=== PATIENT | female | born 1990 | race African-American/Black ===

== ENCOUNTER 2018-03-01 22:37 | Emergency (ER) | payer OTHER ==
[~2018-03-01] VITALS: Ht 180.3 cm; Wt 75.0 kg
[2018-03-01 23:12] VITALS: BP 117/67; PULSE 66; RESP 14; TEMP 98.5; O2SAT 100
[2018-03-02] MEDS ORDERED: CIPR-9 PO (01:40)
[2018-03-02] MEDS ORDERED: TETANUS/DIPHTHERIA TOXOID ADULT 0.5 ML VIAL IM ONE (01:45)
[2018-03-02] MEDS ORDERED: CIPROFLOXACIN 500 MG TAB PO ONE (01:45)
--- NOTE | 2018-03-02 01:53 | PD ---
HPI Chief Complaint: Injury Time Seen by Provider: 01:34 Travel History International Travel<30 days: No Contact w/Intl Traveler<30days: No Traveled to known affect area: No History of Present Illness HPI 27-year-old black female presents emergency department for evaluation of a plantar puncture wound to her right foot which occurred at work this evening. She states that she stepped on a piece of wood from a palate that contain the nail. She states the nail was sticking through the wood approximately 1 inch. She states that it penetrated through the bottom sole of her sneaker into her foot. She states that it did not feel like it hit the bone. She has not had a tetanus shot over 5 years. Pain is mild. She denies any numbness, tingling or weakness. Symptoms are mild. She is referred for this work comp injury. [facility] Past Medical History Medical History: Denies Significant Hx Tetanus Vaccination: > 5 Years Influenza Vaccination: No ?: Not LMP: CURRENTLY Past Surgical History Surgical History: No Previous Surgery Social History Alcohol Use: No Tobacco Use: No Substance Use: No Allergies-Medications (Allergen,Severity, Reaction): Coded Allergies: No Known Allergies (Verified Allergy, Unknown, 03/01/18) Reported Meds & Prescriptions Reported Meds & Active Scripts Active Cipro (Ciprofloxacin HCl) 500 Mg Tab 500 Mg PO BID 7 Days Review of Systems General / Constitutional: No: Fever Eyes: No: Visual changes HENT: No: Headaches Cardiovascular: No: Chest Pain or Discomfort Respiratory: No: Shortness of Breath Gastrointestinal: No: Abdominal Pain Genitourinary: No: Dysuria Musculoskeletal: Positive: Pain, No: Arthralgias, Limited ROM, Weakness, Edema Skin: No Rash Neurologic: No: Weakness Psychiatric: No: Depression Endocrine: No: Polydipsia Hematologic/Lymphatic: No: Easy Bruising Physical Exam Narrative GENERAL: This is a well-nourished, well-developed patient, in no apparent distress. SKIN: No rashes, ecchymoses or lesions. Warm and dry. HEAD: Atraumatic. Normocephalic. EYES: PERRL, EOMI, no discharge or injection. No scleral icterus. EARS: Clear NOSE: Nasal turbinates appear normal. THROAT: Mucosa pink and moist. Airway patent. NECK: Trachea midline. supple, moves head freely. LUNGS: Clear to auscultation. CV: Regular in rhythm. ABDOMEN: Soft nontender. EXT: No clubbing cyanosis or edema. Examination of the right foot reveals a small plantar puncture wound over the the distal forefoot just before the metatarsal heads. This is between the fourth and fifth metatarsals. There is a small amount of blood in the tissue. Minimal tenderness. It does not appear to have any bony involvement. Neurovascular intact. I see a small area of darkness in the skin I suspect this is a area of blood and not a foreign body. Data Data Last Documented VS Vital Signs Date Time Temp Pulse Resp B/P (MAP) Pulse Ox O2 Delivery O2 Flow Rate FiO2 03/01/18 23:12 98.5 66 14 117/67 (84) 100 Orders Orders Foot, Limited (2vws) (03/02/18 01:38) Tetanus/Diphtheria Tox Adult (Tetanus/Di (03/02/18 01:45) Ciprofloxacin (Cipro) (03/02/18 01:45) MDM Medical Decision Making Medical Screen Exam Complete: Yes Emergency Medical Condition: Yes Medical Record Reviewed: Yes Interpretation(s) Right foot: Negative for acute fracture. No foreign body. No air in the tissue. Differential Diagnosis MDM: High Differential diagnoses: Fracture, sprain, strain, dislocation, contusion, neurovascular injury, plantar puncture wound Narrative Course Patient has sustained a plantar puncture wound. She is given tetanus immunization as well as Cipro 500 mg p.o. I have discussed with her the low likelihood of infection but unfortunately when the plantar puncture wounds do become infected they can be very difficult to treat at times. She is aware that she needs close follow-up in the next few days. I will give her tomorrow off allow her to elevate her foot. She can take ibuprofen at home for pain. This is right plantar puncture wound Diagnosis Primary Impression: Right plantar puncture wound Patient Instructions: General Instructions Additional Instructions: Rest. Elevation. Daily wound care with soap, water, Neosporin. Cipro. 3 Advil every 6 hours as needed for pain. No work 1 day. Follow-up with a work comp doctor in the next 2-3 days for recheck. Return to the ER if any problems. Med/Other Pt SpecificInfo: Prescription(s) given, Wound Care Scripts Ciprofloxacin (Cipro) 500 Mg Tab 500 MG PO BID for Infection for 7 Days, #14 TAB 0 Refills Prov: Darryl Holland MD 03/02/18 Disposition: 01 DISCHARGE HOME Condition: Stable Charly Charles Mar 02, 2018 01:53
--- NOTE | 2018-03-02 02:15 | RADRPT ---
EXAM DATE: 03/02/2018 1:52 AM EDT AGE/SEX: 27 years / Female INDICATIONS: Pain and swelling after stepping on a nail. Patient is being evaluated for possible for eign body. CLINICAL DATA: This is the patient's initial encounter. Patient reports that signs and symptoms have been present for 1 day and indicates a pain score of 0/10. MEDICAL/SURGICAL HISTORY: None. None. COMPARISON: No prior exams available for comparison. FINDINGS: Bony structures are intact and in normal alignment. Osseous density is normal. Soft tissues are unre markable. No radiopaque foreign bodies seen. CONCLUSION: No radiopaque foreign body or bony abnormality. Electronically signed by: Davey Carreon MD 03/02/2018 2:14 AM EDT
== END 2018-03-02 02:56 | disposition home or self-care (01) ==
LOC: NEPD 22:37
DX: S91.331A Puncture wound without foreign body, right foot, initial encounter (principal); W45.0XXA Nail entering through skin, initial encounter; Y93.01 Activity, walking, marching and hiking; Y99.0 Civilian activity done for income or pay; Z23 Encounter for immunization
CPT/HCPCS: 73620; 90471; 90714; 99283